=== PATIENT | male | born 1945 | race Caucasian/White ===

== ENCOUNTER 2020-11-24 09:49 | Inpatient (IN) ==
[2020-11-24] MEDS ORDERED: DILTIAZEM 50 MG/10 ML VIAL IV STA (10:09)
[2020-11-24 10:11] LABS: Basophils % 0.3 % (0.0-0.8); Eosinophils # 0.2 10*3/uL (0.0-0.87); Eosinophils % 2.3 % (0.00-10.9); Hematocrit 43.1 VOL% (42.0-52.0); Hemoglobin 14.1 GM/DL (14.0-18.0); Immature Granulocytes % 0.4 %; Immature Granulocytes Absolute 0.03 #; Lymphocytes # 2.2 10*3/uL (1.4-4.0); Lymphocytes % 31.6 % (21.2-54.2); Mean Corpuscular HGB Conc 32.7 GM/DL (32-36); Mean Corpuscular Volume 82.3 FL (87-102); Mean Platelet Volume 9.1 FL (9.6-12.0); Monocytes % 10.4 % (1.7-12.7); Platelet Count 137 T/CUMM (130-400); Red Blood Count 5.24 MC/CUMM (3.8-5.5); Red Cell Distribution Width 13.1 % (9.3-17.3); White Blood Count 7.1 T/CUMM (4-12)
[2020-11-24 10:26] LABS: INR 0.9; PT Patient Result 10.5 SECS (10.5-12.0); Partial Thromboplastin Time 25.4 SECS (23.9-33.8)
[2020-11-24 10:34] LABS: Alanine Aminotransferase 25 U/L (16-61); Albumin 3.6 G/DL (3.4-5.0); Alkaline Phosphatase 107 U/L (45-117); Aspartate Amino Transferase 16 U/L (0-37); Bilirubin,Total < 0.39 MG/DL (0.2-1.0); Blood Urea Nitrogen 12 MG/DL (7-18); Calcium 9.1 MG/DL (8.5-10.1); Carbon Dioxide 27 MMOL/L (21-32); Estimated Glom Filtration Rate 84 ML/MIN; Glucose 120 MG/DL (74-106); Osmolality,Calculated 275.7 MOS/KG (273-304); Potassium 3.9 MMOL/L (3.5-5.1); Sodium 138 MMOL/L (136-145); Total Protein 7.2 G/DL (6.4-8.2)
[2020-11-24] MEDS ORDERED: NITROGLYCERIN SL 0.4 MG TABLET SL PRN (13:22)
[2020-11-24] MEDS ORDERED: ACETAMINOPHEN 325 MG TABLET PO PRN (13:22)
[2020-11-24] MEDS ORDERED: ONDANSETRON 4 MG/2 ML VIAL IV PRN (13:22)
[2020-11-24] MEDS: SODIUM CHLORIDE 0.9% 1,000 ML IV SCH ×2 (14:41→22:48)
[2020-11-24] MEDS ORDERED: SODIUM CHLORIDE 0.9% 250 ML IV ONE (23:19)
[2020-11-24] MEDS: DOCUSATE SODIUM 100 MG CAPSULE PO SCH (23:20)
[2020-11-24] MEDS: TAMSULOSIN 0.4 MG CAPSULE PO SCH (23:20)
[2020-11-24] MEDS: BRIMONIDINE 0.2% OPH SOLN 5 ML BOTTLE BOTH EYES SCH (23:21)
[2020-11-24] MEDS ORDERED: ZALEPLON 5 MG CAPSULE PO PRN (23:27)
[2020-11-24] MEDS ORDERED: SODIUM CHLORIDE 0.9% 1,000 ML IV SCH (23:30)
[2020-11-25] MEDS: DILTIAZEM INJ 100 MG in SODIUM CHLORIDE 0.9% 100 ML IV SCH ×2 (00:04→10:58)
[2020-11-25] MEDS: SODIUM CHLORIDE 0.9% 1,000 ML IV SCH (06:29)
[2020-11-25] MEDS: TAMSULOSIN 0.4 MG CAPSULE PO SCH (07:59)
[2020-11-25] MEDS: DOCUSATE SODIUM 100 MG CAPSULE PO SCH (07:59)
[2020-11-25] MEDS ORDERED: PANTOPRAZOLE 40 MG TABLET PO SCH (09:00)
[2020-11-25] MEDS ORDERED: MULTIVITAMIN (CENTRUM) TABLET PO SCH (09:00)
[2020-11-25] MEDS ORDERED: PSYLLIUM POWDER 3.7 GM/PACK PO SCH (09:00)
[2020-11-25] MEDS ORDERED: POLYETHYLENE GLYCOL POWDER 17 GM PACK PO SCH (09:00)
[2020-11-25] MEDS ORDERED: DILTIAZEM CD 120 MG CAPSULE PO SCH (09:36)
[2020-11-25] MEDS: BRIMONIDINE 0.2% OPH SOLN 5 ML BOTTLE BOTH EYES SCH (10:16)
[2020-11-25 15:45] VITALS: BP 134/57
== END 2020-11-25 16:30 | disposition home or self-care (01) | DRG 310 ==
LOC: N.ED 09:49 → N.EDINP 10:53 → N.TELES 12:38
PROVIDERS: ADMIT Family Medicine; ATTEND Family Medicine